=== PATIENT | female | born 1965 | race Caucasian/White ===

== ENCOUNTER 2017-03-05 14:07 | Emergency (ER) | payer OTHER ==
[~2017-03-05] VITALS: Ht 165.1 cm; Wt 97.1 kg
[~2017-03-05 14:07] MED LIST: LORA1TAB PO; NORCO PO
[2017-03-05] MEDS ORDERED: ALBUTEROL/IPRATROPIUM 2.5MG/0.5MG, 3 ML NPPB ONE (14:30)
[2017-03-05] MEDS ORDERED: ALBUTEROL/IPRATROPIUM 2.5MG/0.5MG, 3 ML ONE (14:56)
[2017-03-05] MEDS ORDERED: OMNIPAQUE 350 MG/ML, 75ML BOTTLE ONE (17:09)
[2017-03-05 18:15] VITALS: BP 123/103
== END 2017-03-05 18:16 | disposition home or self-care (01) ==
LOC: ED 18:00
DX: J20.8 Acute bronchitis due to other specified organisms (principal)
CPT/HCPCS: 71020; 71260; 93005; 94640; 99284; Q9967; J7620

== ENCOUNTER → 2017-05-07 | Outpatient (CLI) | payer OTHER | END | disposition home or self-care (01) | LOC: CFH 10:05 | PROVIDERS: ATTEND Nurse Practitioner Family | DX: Z12.31 Encounter for screening mammogram for malignant neoplasm of breast (principal) | CPT/HCPCS: G0202 ==

== ENCOUNTER 2017-12-09 10:58 | Emergency (ER) | payer OTHER ==
[~2017-12-09] VITALS: Ht 152.4 cm; Wt 94.0 kg
[2017-12-09 11:06] VITALS: BP 122/82
[2017-12-09] MEDS ORDERED: ALBUTEROL/IPRATROPIUM 2.5MG/0.5MG, 3 ML ONE (14:55)
[2017-12-09] MEDS ORDERED: SODIUM CHLORIDE 0.9% 1,000ML IVBOLUS ONE (15:00)
[2017-12-09] MEDS ORDERED: SODIUM CHLORIDE FLUSH 10ML SYR IVF ONE (15:00)
[2017-12-09] MEDS ORDERED: ALBUTEROL/IPRATROPIUM 2.5MG/0.5MG, 3 ML NPPB ONE (15:00)
[2017-12-09 15:34] LABS: ALANINE AMINOTRANSFERASE 35 U/L (12-78); ALBUMIN 4.1 g/dL (3.4-5.0); ANION GAP 7 mmol/L (5-15); CALCIUM 8.8 mg/dL (8.5-10.1); CHLORIDE 104 mmol/L (98-107); CREATININE 0.86 mg/dL (0.55-1.02)
[2017-12-09 15:36] LABS: ALKALINE PHOSPHATASE 67 U/L (45-117); BILIRUBIN,TOTAL 0.4 mg/dL (0.2-1.0)
[2017-12-09 15:44] LABS: RAPID INFLUENZA A Negative (Negative)
[2017-12-09 15:45] LABS: RAPID INFLUENZA B POSITIVE (Negative)
[2017-12-09] MEDS ORDERED: ACETAMINOPHEN 500 MG TABLET ONE (15:45)
[2017-12-09] MEDS ORDERED: ACETAMINOPHEN 500 MG TABLET PO ONE (16:00)
[2017-12-09 16:34] LABS: BASOPHILS # (AUTO) 0.01 x10^3/uL (0-0.1); BASOPHILS % (AUTO) 0 % (0-1); EOSINOPHILS % (AUTO) 0 % (1-7); LYMPHOCYTES # (AUTO) 1.04 x10^3/uL (1-3.4); LYMPHOCYTES % (AUTO) 20 % (22-44); MD NO; MEAN CORPUSCULAR HEMOGLOBIN 29.9 pg (27.0-34.8); MEAN CORPUSCULAR HGB CONC 33.8 g/dL (32.4-35.8); MEAN CORPUSCULAR VOLUME 88.6 fL (80-100); MEAN PLATELET VOLUME 9.5 fL (7.4-10.4); MONOCYTES # (AUTO) 0.55 x10^3/uL (0.2-0.8); MONOCYTES % (AUTO) 11 % (2-9); NEUTROPHILS # (AUTO) 3.61 x10^3/uL (1.8-6.8); NEUTROPHILS % (AUTO) 69 % (42-75); PLATELET COUNT 199 x10^3/uL (130-400); RED BLOOD COUNT 5.33 x10^6/uL (3.82-5.3); RED CELL DISTRIBUTION WIDTH 13.7 % (9.6-15.2)
== END 2017-12-09 17:44 | disposition home or self-care (01) ==
LOC: ED 17:09
DX: J11.1 Influenza due to unidentified influenza virus with other respiratory manifestations (principal); J40 Bronchitis, not specified as acute or chronic; F17.200 Nicotine dependence, unspecified, uncomplicated
CPT/HCPCS: 36415; 71046; 80053; 83605; 85025; 87040; 87400; 93005; 94640; 96360; 99285; J7030; J7512; J7620

== ENCOUNTER 2017-12-11 08:34 | Inpatient (IN) | payer OTHER ==
[~2017-12-11] VITALS: Ht 165.1 cm; Wt 96.0 kg
[2017-12-11] MEDS ORDERED: ONDANSETRON 2MG/ML, 2ML IVPush ONE (09:30)
[2017-12-11] MEDS ORDERED: SODIUM CHLORIDE 0.9% 1,000ML IVBOLUS ONE (09:30)
[2017-12-11] MEDS ORDERED: MORPHINE SULFATE 4 MG/ML, 1ML IVPush PRN (09:30)
[2017-12-11] MEDS ORDERED: VANCOMYCIN PER PHARMACY MC ONE (09:30)
[2017-12-11] MEDS ORDERED: CEFTRIAXONE PMX 1GM/50ML 50 ML IVPB ONE (09:30)
[2017-12-11] MEDS ORDERED: SODIUM CHLORIDE FLUSH 10ML SYR IVF ONE (09:30)
[2017-12-11] MEDS ORDERED: MORPHINE SULFATE 4 MG/ML, 1ML ONE (09:39)
[2017-12-11] MEDS ORDERED: ONDANSETRON 2MG/ML, 2ML ONE (09:39)
[2017-12-11] MEDS ORDERED: CEFTRIAXONE PMX 1GM/50ML 50 ML ONE (09:39)
[2017-12-11] MEDS ORDERED: PHARMACOKINETIC CONSULTATION MC ONE ×2 (10:00→13:30)
[2017-12-11 10:02] LABS: MD YES; MEAN CORPUSCULAR HEMOGLOBIN 30.1 pg (27.0-34.8); MEAN CORPUSCULAR VOLUME 88.7 fL (80-100); MEAN PLATELET VOLUME 9.3 fL (7.4-10.4); PLATELET COUNT 179 x10^3/uL (130-400); RED BLOOD COUNT 5.11 x10^6/uL (3.82-5.3); RED CELL DISTRIBUTION WIDTH 14.1 % (9.6-15.2)
[2017-12-11 10:04] LABS: ALANINE AMINOTRANSFERASE 46 U/L (12-78); ALBUMIN 3.7 g/dL (3.4-5.0); ANION GAP 5 mmol/L (5-15); CALCIUM 8.6 mg/dL (8.5-10.1); CHLORIDE 106 mmol/L (98-107); CREATININE 0.66 mg/dL (0.55-1.02)
[2017-12-11 10:06] LABS: ALKALINE PHOSPHATASE 59 U/L (45-117); BILIRUBIN,TOTAL 0.4 mg/dL (0.2-1.0); TOTAL PROTEIN 7.6 g/dL (6.4-8.2)
[2017-12-11] MEDS ORDERED: VANCOMYCIN 1,500 MG in SODIUM CHLORIDE 0.9% 250 ML IV ONE (10:30)
[2017-12-11] MEDS ORDERED: VANCOMYCIN 1,800 MG in SODIUM CHLORIDE 0.9% 250 ML IV ONE (10:30)
[2017-12-11 10:57] LABS: <PLATELET ESTIMATE> ADEQUATE; <PLT MORPHOLOGY> NORMAL PLT MORPH; <RBC MORPHOLOGY> NORMAL; BAND#(MANUAL) 0.38 x10^3/uL; BANDS%(MANUAL) 6 % (0-7); LYMPHS% (MANUAL) 14 % (22-44); SEG#(MANUAL) 5.12 x10^3/uL (1.8-6.8); SEGS% (MANUAL) 80 % (42-75)
[2017-12-11] MEDS ORDERED: VANCOMYCIN PER PHARMACY MC PRN (11:30)
[2017-12-11] MEDS ORDERED: ACETAMINOPHEN 325 MG TABLET PO PRN (11:30)
[2017-12-11] MEDS ORDERED: DOXYCYCLINE 100 MG in DEXTROSE 5% 250 ML IV SCH (11:30)
[2017-12-11] MEDS ORDERED: ALBUTEROL/IPRATROPIUM 2.5MG/0.5MG, 3 ML ONE (12:35)
[2017-12-11 12:57] VITALS: BP 113/74
[2017-12-11] MEDS ORDERED: AMOX1TAB12 PO (13:20)
[2017-12-11] MEDS ORDERED: PRED20TA PO (13:22)
[2017-12-11] MEDS ORDERED: PHARMACOKINETIC MONITORING MC PRN (13:30)
[2017-12-11] MEDS: OSELTAMIVIR 75 MG CAPSULE PO SCH ×2 (14:42→22:04)
[2017-12-11] MEDS: GUAIFENESIN ER 600 MG TABLET PO SCH ×2 (14:43→22:04)
[2017-12-11] MEDS: BENZONATATE 100 MG CAPSULE PO SCH ×3 (14:43→22:04)
[2017-12-11] MEDS: SODIUM CHLORIDE 0.9% 1,000 ML IV SCH (14:44)
[2017-12-11] MEDS: HEPARIN 5,000 UNITS/ML, 1ML SQ SCH ×2 (14:44→22:04)
[2017-12-11] MEDS: DOXYCYCLINE 100 MG in DEXTROSE 5% 250 ML IV SCH (14:50)
[2017-12-11] MEDS: NICOTINE 21 MG/24 HR PATCH.TD24 TD SCH (14:51)
[2017-12-11] MEDS: ALBUTEROL SULFATE 2.5 MG/3 ML NPPB SCH ×2 (15:00→18:57)
[2017-12-11 20:55] LABS: MICROSCOPIC NOT IND
[2017-12-11 20:58] LABS: CULTURE INDICATED? NO
[2017-12-11 22:00] VITALS: BP 109/75
[2017-12-11] MEDS: VANCOMYCIN 1,400 MG in SODIUM CHLORIDE 0.9% 250 ML IV SCH (22:53)
[2017-12-12] MEDS: SODIUM CHLORIDE 0.9% 1,000 ML IV SCH ×2 (00:45→14:50)
[2017-12-12] MEDS: DOXYCYCLINE 100 MG in DEXTROSE 5% 250 ML IV SCH ×2 (02:01→14:49)
[2017-12-12] MEDS: LORazepam 1MG TABLET PO PRN ×3 (03:19→22:53)
[2017-12-12 03:38] VITALS: BP 93/68
[2017-12-12 04:08] LABS: BASOPHILS # (AUTO) 0.01 x10^3/uL (0-0.1); BASOPHILS % (AUTO) 0 % (0-1); EOSINOPHILS % (AUTO) 0 % (1-7); LYMPHOCYTES # (AUTO) 1.28 x10^3/uL (1-3.4); LYMPHOCYTES % (AUTO) 30 % (22-44); MD NO; MEAN CORPUSCULAR HEMOGLOBIN 29.9 pg (27.0-34.8); MEAN CORPUSCULAR HGB CONC 33.5 g/dL (32.4-35.8); MEAN CORPUSCULAR VOLUME 89.4 fL (80-100); MEAN PLATELET VOLUME 9.2 fL (7.4-10.4); MONOCYTES # (AUTO) 0.43 x10^3/uL (0.2-0.8); MONOCYTES % (AUTO) 10 % (2-9); NEUTROPHILS # (AUTO) 2.61 x10^3/uL (1.8-6.8); NEUTROPHILS % (AUTO) 61 % (42-75); PLATELET COUNT 169 x10^3/uL (130-400); RED BLOOD COUNT 4.35 x10^6/uL (3.82-5.3); RED CELL DISTRIBUTION WIDTH 14.2 % (9.6-15.2)
[2017-12-12 04:22] LABS: CHLORIDE 107 mmol/L (98-107)
[2017-12-12 04:31] LABS: ALANINE AMINOTRANSFERASE 41 U/L (12-78); ALBUMIN 3.1 g/dL (3.4-5.0); ALKALINE PHOSPHATASE 51 U/L (45-117); ANION GAP 9 mmol/L (5-15); BILIRUBIN,TOTAL 0.3 mg/dL (0.2-1.0); CALCIUM 7.9 mg/dL (8.5-10.1); CREATININE 0.81 mg/dL (0.55-1.02); TOTAL PROTEIN 6.5 g/dL (6.4-8.2)
[2017-12-12] MEDS: ALBUTEROL SULFATE 2.5 MG/3 ML NPPB SCH ×4 (05:35→20:51)
[2017-12-12] MEDS: HEPARIN 5,000 UNITS/ML, 1ML SQ SCH ×3 (06:06→22:43)
[2017-12-12] MEDS: NICOTINE 21 MG/24 HR PATCH.TD24 TD SCH (08:16)
[2017-12-12] MEDS: GUAIFENESIN ER 600 MG TABLET PO SCH ×2 (08:16→20:31)
[2017-12-12] MEDS: OSELTAMIVIR 75 MG CAPSULE PO SCH ×2 (08:16→20:31)
[2017-12-12] MEDS: BENZONATATE 100 MG CAPSULE PO SCH ×3 (08:16→20:31)
[2017-12-12 08:19] VITALS: BP 124/79
[2017-12-12] MEDS ORDERED: POLYETHYLENE GLYCOL 17 GM PACKET PO PRN (08:30)
[2017-12-12] MEDS ORDERED: ONDANSETRON 4 MG TABLET PO PRN (08:30)
[2017-12-12] MEDS: DOCUSATE 100 MG CAPSULE PO SCH ×2 (09:00→20:31)
[2017-12-12] MEDS: CEFTRIAXONE PMX 1GM/50ML 50 ML IV SCH (10:35)
[2017-12-12] MEDS: VANCOMYCIN 1,400 MG in SODIUM CHLORIDE 0.9% 250 ML IV SCH ×2 (11:17→22:44)
[2017-12-12 15:17] VITALS: BP 131/84
[2017-12-12 19:17] VITALS: BP 121/84
[2017-12-13 00:16] VITALS: BP 116/73
[2017-12-13] MEDS: DOXYCYCLINE 100 MG in DEXTROSE 5% 250 ML IV SCH ×2 (02:13→15:06)
[2017-12-13] MEDS: SODIUM CHLORIDE 0.9% 1,000 ML IV SCH (05:34)
[2017-12-13] MEDS: HEPARIN 5,000 UNITS/ML, 1ML SQ SCH ×3 (06:27→21:05)
[2017-12-13] MEDS: ALBUTEROL SULFATE 2.5 MG/3 ML NPPB SCH ×4 (07:05→20:30)
[2017-12-13 07:24] VITALS: BP 114/82
[2017-12-13] MEDS: DOCUSATE 100 MG CAPSULE PO SCH ×2 (08:38→21:05)
[2017-12-13] MEDS: GUAIFENESIN ER 600 MG TABLET PO SCH ×2 (08:38→21:05)
[2017-12-13] MEDS: BENZONATATE 100 MG CAPSULE PO SCH ×3 (08:39→21:04)
[2017-12-13] MEDS: OSELTAMIVIR 75 MG CAPSULE PO SCH ×2 (08:39→21:04)
[2017-12-13 09:01] VITALS: BP 121/81
[2017-12-13] MEDS: CEFTRIAXONE PMX 1GM/50ML 50 ML IV SCH (10:11)
[2017-12-13 14:53] VITALS: BP 118/76
[2017-12-13] MEDS: NICOTINE 21 MG/24 HR PATCH.TD24 TD SCH (15:06)
[2017-12-13 19:01] VITALS: BP 105/63
[2017-12-13] MEDS: LORazepam 1MG TABLET PO PRN (21:05)
[2017-12-14 00:58] VITALS: BP 125/82
[2017-12-14] MEDS: DOXYCYCLINE 100 MG in DEXTROSE 5% 250 ML IV SCH ×2 (02:44→14:30)
[2017-12-14] MEDS: HEPARIN 5,000 UNITS/ML, 1ML SQ SCH ×2 (03:09→16:45)
[2017-12-14 06:59] VITALS: BP 122/80
[2017-12-14] MEDS: ALBUTEROL SULFATE 2.5 MG/3 ML NPPB SCH ×3 (07:24→15:45)
[2017-12-14] MEDS: CEFTRIAXONE PMX 1GM/50ML 50 ML IV SCH (09:42)
[2017-12-14] MEDS: GUAIFENESIN ER 600 MG TABLET PO SCH (09:43)
[2017-12-14] MEDS: BENZONATATE 100 MG CAPSULE PO SCH ×2 (09:44→16:53)
[2017-12-14] MEDS: DOCUSATE 100 MG CAPSULE PO SCH (09:44)
[2017-12-14] MEDS: OSELTAMIVIR 75 MG CAPSULE PO SCH (09:44)
[2017-12-14] MEDS: LORazepam 1MG TABLET PO PRN (09:45)
[2017-12-14] MEDS ORDERED: OSEL75CA PO (11:41)
[2017-12-14] MEDS ORDERED: GUAI600T31 PO (11:41)
[2017-12-14] MEDS ORDERED: CEFD300C37 PO (11:41)
[2017-12-14] MEDS ORDERED: DOXY100T PO (11:41)
[2017-12-14] MEDS ORDERED: PRED20TA PO (11:41)
[2017-12-14] MEDS ORDERED: CEFDINIR 300 MG CAPSULE PO SCH (12:00)
[2017-12-14] MEDS ORDERED: DOXYCYCLINE 100MG TABLET PO SCH (12:00)
[2017-12-14] MEDS ORDERED: ALBU2.5V NPPB (12:02)
[2017-12-14 13:07] VITALS: BP 108/71
[2017-12-14 16:36] VITALS: BP 112/75
[2017-12-14] MEDS: NICOTINE 21 MG/24 HR PATCH.TD24 TD SCH (16:54)
== END 2017-12-14 17:40 | disposition home or self-care (01) | DRG 193 ==
LOC: ED 09:13 → EDIP 10:08 → 4NOR 12:27
PROVIDERS: ADMIT Hospitalist; ATTEND Hospitalist
DX: J10.08 Influenza due to other identified influenza virus with other specified pneumonia (principal); J96.01 Acute respiratory failure with hypoxia; R78.81 Bacteremia; J15.9 Unspecified bacterial pneumonia; B96.89 Other specified bacterial agents as the cause of diseases classified elsewhere; F41.9 Anxiety disorder, unspecified; H66.90 Otitis media, unspecified, unspecified ear; T38.0X5A Adverse effect of glucocorticoids and synthetic analogues, initial encounter; M54.12 Radiculopathy, cervical region; Z71.6 Tobacco abuse counseling; Z79.899 Other long term (current) drug therapy; F17.210 Nicotine dependence, cigarettes, uncomplicated
CPT/HCPCS: 36415; 71045; 80053; 80202; 81003; 82962; 83605; 85025; 87040; 93005; 93306; 94640; 96365; 96375; J0696; J1644; J2405; J3370; J7060; J7613; J7030; J7050; J7512

== ENCOUNTER 2018-01-14 18:20 | Emergency (ER) | payer OTHER ==
[~2018-01-14] VITALS: Ht 165.1 cm; Wt 91.0 kg
[~2018-01-14 18:20] MED LIST changes: +ALBU2.5V NPPB; +AMOX1TAB12 PO; +CEFD300C37 PO; +DOXY100T PO; +GUAI600T31 PO; +OSEL75CA PO; +PRED20TA PO
[2018-01-14] MEDS ORDERED: AMOX-291 PO (18:49)
[2018-01-14 19:19] LABS: BASOPHILS # (AUTO) 0.04 x10^3/uL (0-0.1); BASOPHILS % (AUTO) 0 % (0-1); EOSINOPHILS # (AUTO) 0.15 x10^3/uL (0-0.4); EOSINOPHILS % (AUTO) 2 % (1-7); LYMPHOCYTES # (AUTO) 2.68 x10^3/uL (1-3.4); LYMPHOCYTES % (AUTO) 27 % (22-44); MD NO; MEAN CORPUSCULAR HEMOGLOBIN 30.4 pg (27.0-34.8); MEAN CORPUSCULAR HGB CONC 34.6 g/dL (32.4-35.8); MEAN CORPUSCULAR VOLUME 88.1 fL (80-100); MEAN PLATELET VOLUME 8.9 fL (7.4-10.4); MONOCYTES # (AUTO) 0.72 x10^3/uL (0.2-0.8); MONOCYTES % (AUTO) 7 % (2-9); NEUTROPHILS # (AUTO) 6.24 x10^3/uL (1.8-6.8); NEUTROPHILS % (AUTO) 64 % (42-75); PLATELET COUNT 320 x10^3/uL (130-400); RED BLOOD COUNT 4.52 x10^6/uL (3.82-5.3); RED CELL DISTRIBUTION WIDTH 12.9 % (9.6-15.2)
[2018-01-14 19:25] LABS: ALANINE AMINOTRANSFERASE 41 U/L (12-78); ALBUMIN 3.5 g/dL (3.4-5.0); ANION GAP 7 mmol/L (5-15); CALCIUM 8.7 mg/dL (8.5-10.1); CHLORIDE 105 mmol/L (98-107); CREATININE 0.79 mg/dL (0.55-1.02)
[2018-01-14 19:29] LABS: ALKALINE PHOSPHATASE 66 U/L (45-117); BILIRUBIN,TOTAL 0.2 mg/dL (0.2-1.0); TROPONIN I < 0.015 ng/mL (0.000-0.045)
[2018-01-14 21:05] VITALS: BP 145/92
== END 2018-01-14 21:06 | disposition home or self-care (01) ==
LOC: ED 20:40
DX: R07.89 Other chest pain (principal); J01.00 Acute maxillary sinusitis, unspecified
CPT/HCPCS: 36415; 71045; 80053; 84484; 85025; 93005; 99285

== ENCOUNTER → 2018-02-10 | Outpatient (CLI) | payer OTHER ==
[~2018-02-10] MED LIST changes: +AMOX-291 PO
== END | disposition home or self-care (01) ==
LOC: CFH 14:46
PROVIDERS: ATTEND Nurse Practitioner Family
DX: E04.1 Nontoxic single thyroid nodule (principal); R59.9 Enlarged lymph nodes, unspecified
CPT/HCPCS: 76536

== ENCOUNTER → 2018-03-20 | Outpatient (CLI) | payer OTHER ==
[~2018-03-20] MED LIST changes: +OMNIPAQUE 350 MG/ML, 75ML BOTTLE ONE
== END | disposition home or self-care (01) ==
LOC: CFH 10:30
PROVIDERS: ATTEND Nurse Practitioner Family
DX: R06.02 Shortness of breath (principal)
CPT/HCPCS: 71260; Q9967

== ENCOUNTER → 2019-03-30 | Outpatient (CLI) | payer OTHER ==
[~2019-03-30] MED LIST changes: -OMNIPAQUE 350 MG/ML, 75ML BOTTLE ONE; -OSEL75CA PO; +OSEL75CA26 PO
== END | disposition home or self-care (01) ==
LOC: CFH 07:25
PROVIDERS: ATTEND Otolaryngology
DX: K76.0 Fatty (change of) liver, not elsewhere classified (principal); E04.1 Nontoxic single thyroid nodule
CPT/HCPCS: 76536; 76700

== ENCOUNTER → 2019-12-15 | Outpatient (CLI) | payer OTHER | END | disposition home or self-care (01) | LOC: CFH 16:06 | PROVIDERS: ATTEND Nurse Practitioner Family | DX: R06.02 Shortness of breath (principal) | CPT/HCPCS: 71046 ==

== ENCOUNTER 2020-04-01 12:35 | Emergency (ER) | payer OTHER ==
[~2020-04-01] VITALS: Ht 165.1 cm; Wt 104.1 kg
--- NOTE | 2020-04-01 12:48 | NUR ---
PT AMBULATED TO RESTROOM WITH STEADY GAIT TO PROVIDE URINE SAMPLE. UA ORDERED PER PROTOCOL AND SENT TO LAB.
--- NOTE | 2020-04-01 13:24 | NUR ---
PIV PLACED, LABS DRAWN AND COLLECTED BY CREEL SELECTOR. PT CONNECTED TO MONITORING. PT ON BASELINE 3L OXYGEN. MARTHA.
[2020-04-01] MEDS ORDERED: SODIUM CHLORIDE FLUSH 10ML SYR IVF ONE (13:30)
[2020-04-01 13:36] LABS: BASOPHILS # (AUTO) 0.03 x10^3/uL (0-0.1); BASOPHILS % (AUTO) 0 % (0-1); EOSINOPHILS # (AUTO) 0.21 x10^3/uL (0-0.4); EOSINOPHILS % (AUTO) 2 % (1-7); LYMPHOCYTES % (AUTO) 24 % (22-44); MD NO; MEAN CORPUSCULAR HEMOGLOBIN 30.2 pg (27.0-34.8); MEAN CORPUSCULAR VOLUME 91.4 fL (80-100); MEAN PLATELET VOLUME 9.1 fL (7.4-10.4); MONOCYTES # (AUTO) 0.58 x10^3/uL (0.2-0.8); MONOCYTES % (AUTO) 6 % (2-9); NEUTROPHILS # (AUTO) 6.37 x10^3/uL (1.8-6.8); NEUTROPHILS % (AUTO) 67 % (42-75); PLATELET COUNT 284 x10^3/uL (130-400); RED BLOOD COUNT 5.07 x10^6/uL (3.82-5.3); RED CELL DISTRIBUTION WIDTH 13.5 % (9.6-15.2)
[2020-04-01 13:37] LABS: MICROSCOPIC NOT IND
[2020-04-01 13:46] LABS: ALANINE AMINOTRANSFERASE 35 U/L (12-78); ALBUMIN 3.6 g/dL (3.4-5.0); ANION GAP 8 mmol/L (5-15); CALCIUM 8.5 mg/dL (8.5-10.1); CHLORIDE 108 mmol/L (98-107); CREATININE 0.85 mg/dL (0.55-1.02)
[2020-04-01 13:50] LABS: ALKALINE PHOSPHATASE 64 U/L (45-117); BILIRUBIN,TOTAL 0.3 mg/dL (0.2-1.0); TOTAL PROTEIN 7.4 g/dL (6.4-8.2); TROPONIN I < 0.015 ng/mL (0.000-0.045)
--- NOTE | 2020-04-01 14:01 | NUR ---
ALL RESULTS ARE BACK AT THIS TIME. CHART UP FOR RECHECK.
[2020-04-01 14:06] VITALS: BP 120/71
--- NOTE | 2020-04-01 14:09 | NUR ---
MD AT BEDSIDE TO UPDATE PT ON POC.
--- NOTE | 2020-04-01 14:14 | NUR ---
NEW ORDER FOR CT OF ABD, AT THIS TIME.
--- NOTE | 2020-04-01 14:25 | NUR ---
PT GOING TO CT.
--- NOTE | 2020-04-01 14:43 | NUR ---
ALL RESULTS ARE BACK AT THIS TIME. CHART UP FOR RECHECK.
--- NOTE | 2020-04-01 14:59 | NUR ---
Rudy khan in [facility] - 04/01/20 at 1514 by USSELLCourtney PT GIVEN TAXI VOUCHER FOR [employer] [facility]. PT REFUSED VITALS.
== END 2020-04-01 15:00 | disposition home or self-care (01) ==
LOC: ED 13:29
DX: R06.00 Dyspnea, unspecified (principal); R42 Dizziness and giddiness; R53.83 Other fatigue; J45.909 Unspecified asthma, uncomplicated; R94.31 Abnormal electrocardiogram [ECG] [EKG]
CPT/HCPCS: 36415; 71045; 74176; 80053; 81003; 84484; 85025; 93005; 99285

== ENCOUNTER 2020-06-07 15:28 | Emergency (ER) | payer OTHER ==
[~2020-06-07] VITALS: Ht 165.1 cm; Wt 104.7 kg
[2020-06-07] MEDS ORDERED: SODIUM CHLORIDE FLUSH 10ML SYR IVF ONE (16:00)
[2020-06-07 16:45] LABS: BASOPHILS # (AUTO) 0.06 x10^3/uL (0-0.1); BASOPHILS % (AUTO) 1 % (0-1); EOSINOPHILS # (AUTO) 0.25 x10^3/uL (0-0.4); EOSINOPHILS % (AUTO) 3 % (1-7); LYMPHOCYTES # (AUTO) 2.64 x10^3/uL (1-3.4); LYMPHOCYTES % (AUTO) 26 % (22-44); MD NO; MEAN CORPUSCULAR HEMOGLOBIN 30.1 pg (27.0-34.8); MEAN CORPUSCULAR HGB CONC 33.5 g/dL (32.4-35.8); MEAN CORPUSCULAR VOLUME 89.8 fL (80-100); MEAN PLATELET VOLUME 8.7 fL (7.4-10.4); MONOCYTES % (AUTO) 6 % (2-9); NEUTROPHILS # (AUTO) 6.51 x10^3/uL (1.8-6.8); NEUTROPHILS % (AUTO) 65 % (42-75); PLATELET COUNT 258 x10^3/uL (130-400); RED BLOOD COUNT 5.12 x10^6/uL (3.82-5.3); RED CELL DISTRIBUTION WIDTH 13.9 % (9.6-15.2)
--- NOTE | 2020-06-07 16:46 | NUR ---
HAT CONDITIONER: PT TO ROOM FROM LOBBY
[2020-06-07 16:56] LABS: ALBUMIN 3.8 g/dL (3.4-5.0); ANION GAP 6 mmol/L (5-15); CALCIUM 8.6 mg/dL (8.5-10.1); CHLORIDE 110 mmol/L (98-107)
[2020-06-07 17:01] LABS: ALANINE AMINOTRANSFERASE 35 U/L (12-78); ALKALINE PHOSPHATASE 73 U/L (45-117); BILIRUBIN,TOTAL 0.4 mg/dL (0.2-1.0); CREATININE 0.83 mg/dL (0.55-1.02); TOTAL PROTEIN 7.6 g/dL (6.4-8.2)
--- NOTE | 2020-06-07 17:20 | NUR ---
UA SENT VSS ON NIBP/POX PROVIDER TO BEDSIDE FOR RE-EVAL (ORIGINAL ORDERS PLACED BY PIT PROVIDER)
[2020-06-07] MEDS ORDERED: MORPHINE SULFATE 4 MG/ML, 1ML IVPush PRN (17:30)
[2020-06-07] MEDS ORDERED: ONDANSETRON 2MG/ML, 2ML IVPush ONE (17:30)
[2020-06-07 17:50] LABS: HCG UR SG 1.022 (1.003-1.030)
[2020-06-07] MEDS ORDERED: ONDANSETRON 2MG/ML, 2ML ONE (18:15)
[2020-06-07] MEDS ORDERED: MORPHINE SULFATE 4 MG/ML, 1ML ONE (18:16)
--- NOTE | 2020-06-07 19:06 | NUR ---
report to josué mercedes
[2020-06-07 19:21] VITALS: BP 151/89
[2020-06-07 19:23] LABS: MICROSCOPIC NOT IND
== END 2020-06-07 19:23 | disposition home or self-care (01) ==
LOC: ED 19:18
DX: R10.11 Right upper quadrant pain (principal); R10.13 Epigastric pain; R11.2 Nausea with vomiting, unspecified; R19.7 Diarrhea, unspecified; J44.9 Chronic obstructive pulmonary disease, unspecified
CPT/HCPCS: 36415; 76700; 80053; 81003; 81025; 83690; 85025; 96374; 96375; 99284; J2270; J2405

== ENCOUNTER → 2020-06-27 | Outpatient (CLI) | payer OTHER ==
[~2020-06-27] MED LIST changes: +SINCALIDE (KINEVAC) 5 MCG ONE
== END | disposition home or self-care (01) ==
LOC: RAD 11:08
PROVIDERS: ATTEND Nurse Practitioner Family
DX: R10.9 Unspecified abdominal pain (principal)
CPT/HCPCS: 78227; A9537; J2805

== ENCOUNTER 2020-07-03 06:51 | Observation (INO) | payer OTHER ==
[~2020-07-03] VITALS: Ht 165.1 cm; Wt 108.2 kg
[~2020-07-03 06:51] MED LIST changes: -SINCALIDE (KINEVAC) 5 MCG ONE
--- NOTE | 2020-07-03 07:04 | NUR ---
PT AMBULATED W/ A STEADY GAIT TO THE ROOM AT THIS TIME.
--- NOTE | 2020-07-03 07:15 | NUR ---
first contact with pt. ptc/o all quadrants abd pain/mid back and neck pain/swelling arms and legs with tinglingfeeling. pt stated "my gallbladder is not working". pt denies n/v/d. pt's aox4. resps even and unlabored. bp/spo2 monitors in place. call light within reach.
[2020-07-03] MEDS ORDERED: ONDANSETRON 2MG/ML, 2ML IVPush ONE (07:30)
[2020-07-03] MEDS ORDERED: SODIUM CHLORIDE FLUSH 10ML SYR IVF ONE (07:30)
[2020-07-03] MEDS ORDERED: MORPHINE SULFATE 4 MG/ML, 1ML IVPush PRN ×2 (07:30→10:30)
[2020-07-03 07:38] LABS: BASOPHILS # (AUTO) 0.03 x10^3/uL (0-0.1); BASOPHILS % (AUTO) 0 % (0-1); EOSINOPHILS # (AUTO) 0.26 x10^3/uL (0-0.4); EOSINOPHILS % (AUTO) 4 % (1-7); LYMPHOCYTES # (AUTO) 2.11 x10^3/uL (1-3.4); LYMPHOCYTES % (AUTO) 30 % (22-44); MD NO; MEAN CORPUSCULAR HEMOGLOBIN 29.9 pg (27.0-34.8); MEAN CORPUSCULAR HGB CONC 33.2 g/dL (32.4-35.8); MEAN PLATELET VOLUME 8.6 fL (7.4-10.4); MONOCYTES # (AUTO) 0.53 x10^3/uL (0.2-0.8); MONOCYTES % (AUTO) 8 % (2-9); NEUTROPHILS # (AUTO) 4.07 x10^3/uL (1.8-6.8); NEUTROPHILS % (AUTO) 58 % (42-75); PLATELET COUNT 243 x10^3/uL (130-400); RED BLOOD COUNT 4.94 x10^6/uL (3.82-5.3); RED CELL DISTRIBUTION WIDTH 13.4 % (9.6-15.2)
[2020-07-03] MEDS ORDERED: ONDANSETRON 2MG/ML, 2ML ONE ×3 (07:40→19:43)
[2020-07-03] MEDS ORDERED: MORPHINE SULFATE 4 MG/ML, 1ML ONE ×2 (07:40→10:08)
--- NOTE | 2020-07-03 07:45 | NUR ---
pt amb to br and back to room with steady gait. pt provided urine sample and ua sent.
[2020-07-03 07:48] LABS: ALANINE AMINOTRANSFERASE 24 U/L (12-78); ALBUMIN 3.4 g/dL (3.4-5.0); ANION GAP 7 mmol/L (5-15); CALCIUM 9.2 mg/dL (8.5-10.1); CHLORIDE 113 mmol/L (98-107); CREATININE 0.69 mg/dL (0.55-1.02)
[2020-07-03 07:50] LABS: ALKALINE PHOSPHATASE 62 U/L (45-117); BILIRUBIN,TOTAL 0.5 mg/dL (0.2-1.0); TOTAL PROTEIN 6.9 g/dL (6.4-8.2)
--- NOTE | 2020-07-03 07:59 | NUR ---
piv est on r ac with no complications. pt medicated per emar. pt tolerated well.
[2020-07-03 08:02] LABS: MICROSCOPIC NOT IND
[2020-07-03] MEDS ORDERED: [UNRECOGNIZED DRUG - REMARK] (08:57)
--- NOTE | 2020-07-03 09:07 | NUR ---
pt resting in [facility]. pt's aox4. resps even and unlabored. pt stated"i got some new perscription meds but i don't remember the name of medications."
--- NOTE | 2020-07-03 09:53 | NUR ---
this rn talked to rn at or. pt is suppose to go to or at 3pm today. pt updated.
--- NOTE | 2020-07-03 10:26 | NUR ---
pt medicated per emar. pt tolerated well.
[2020-07-03] MEDS ORDERED: ALBUTEROL SULFATE 2.5 MG/3 ML NPPB PRN ×2 (10:30→19:00)
[2020-07-03] MEDS ORDERED: METOCLOPRAMIDE 5 MG/ML, 2ML IVPush PRN (10:30)
[2020-07-03] MEDS ORDERED: ONDANSETRON ODT 4 MG PO PRN (10:30)
[2020-07-03] MEDS ORDERED: ACETAMINOPHEN 325 MG TABLET PO PRN (10:30)
[2020-07-03] MEDS ORDERED: POLYETHYLENE GLYCOL 17 GM PACKET PO PRN (10:30)
--- NOTE | 2020-07-03 10:58 | NUR ---
report given to jean-pierre mercedes. all questions answered.
[2020-07-03 11:35] VITALS: BP 118/75
[2020-07-03] MEDS: LORazepam 1MG TABLET PO SCH ×3 (11:44→20:51)
[2020-07-03] MEDS: LACTATED RINGERS 1,000 ML IV SCH ×2 (11:54→20:51)
[2020-07-03] MEDS: KETOROLAC 30 MG/1 ML IV PRN ×2 (11:54→20:51)
[2020-07-03 12:26] LABS: HCG UR SG 1.023 (1.003-1.030)
[2020-07-03 13:08] VITALS: BP 101/68
[2020-07-03] MEDS ORDERED: BUPIVACAINE/PF 0.5% ONE (16:56)
[2020-07-03] MEDS ORDERED: MIDAZOLAM 1 MG/ML, 2ML ONE (17:59)
[2020-07-03] MEDS ORDERED: FENTANYL PF 250 MCG/5ML ONE (17:59)
[2020-07-03] MEDS ORDERED: CEFAZOLIN 1,000 MG ONE (18:25)
[2020-07-03] MEDS ORDERED: SUCCINYLCHOLINE 20 MG/ML, 10ML ONE (18:25)
[2020-07-03] MEDS ORDERED: SUGAMMADEX 200 MG/2 ML IVPush ONE (18:25)
[2020-07-03] MEDS ORDERED: ROCURONIUM 10 MG/ML,10ML ONE (18:25)
[2020-07-03] MEDS ORDERED: PROPOFOL 10 MG/ML, 20ML ONE (18:25)
[2020-07-03] MEDS ORDERED: DEXAMETHASONE 4 MG/ML, 1ML ONE (18:25)
[2020-07-03] MEDS ORDERED: BUPIVACAINE/PF 0.5% INFIL ONE (18:58)
[2020-07-03] MEDS ORDERED: EPINEPHRINE 1 MG/ML, 1ML INFIL ONE (18:59)
[2020-07-03] MEDS ORDERED: OXYcodone 5 MG/5 ML ORAL.SOL UDC PO PRN (19:00)
[2020-07-03] MEDS ORDERED: KETOROLAC 30 MG/1 ML IV PRN (19:00)
[2020-07-03] MEDS ORDERED: METOCLOPRAMIDE 5 MG/ML, 2ML IV PRN (19:00)
[2020-07-03] MEDS ORDERED: hydrALAzine 20 MG/ML, 1ML IV PRN (19:00)
[2020-07-03] MEDS ORDERED: LABETALOL 5MG/ML, 20ML IV PRN (19:00)
[2020-07-03] MEDS ORDERED: ONDANSETRON 2MG/ML, 2ML IVPush PRN (19:00)
[2020-07-03] MEDS ORDERED: DIAZEPAM 5 MG/ML, 2ML IV PRN ×2 (19:00)
[2020-07-03] MEDS ORDERED: PROMETHAZINE 25 MG/ML, 1ML IV PRN (19:00)
[2020-07-03] MEDS ORDERED: MEPERIDINE/PF 25MG/0.5ML IVPush PRN (19:00)
[2020-07-03] MEDS ORDERED: FENTANYL PF 100 MCG/2ML ONE (19:33)
[2020-07-03] MEDS ORDERED: OXYcodone 5 MG/5 ML ORAL.SOL UDC ONE (19:33)
[2020-07-03] MEDS: FENTANYL PF 100 MCG/2ML IV PRN ×2 (19:34→19:39)
[2020-07-03] MEDS ORDERED: HYDROmorphone 1 MG/ML, 1ML INJ ONE (19:43)
[2020-07-03] MEDS: HYDROmorphone 1 MG/ML, 1ML INJ IV PRN ×2 (19:46→19:53)
[2020-07-03] MEDS ORDERED: PROMETHAZINE 25 MG/ML, 1ML ONE (19:57)
[2020-07-03 20:33] VITALS: BP 135/82
[2020-07-03] MEDS ORDERED: TEMAZEPAM 15 MG CAPSULE PO PRN (21:00)
[2020-07-03 23:44] VITALS: BP 96/59
[2020-07-04] MEDS: LACTATED RINGERS 1,000 ML IV SCH ×2 (02:31→11:05)
[2020-07-04 03:32] VITALS: BP 113/66
[2020-07-04 05:32] LABS: BASOPHILS # (AUTO) 0.03 x10^3/uL (0-0.1); BASOPHILS % (AUTO) 0 % (0-1); EOSINOPHILS # (AUTO) 0.23 x10^3/uL (0-0.4); EOSINOPHILS % (AUTO) 3 % (1-7); LYMPHOCYTES # (AUTO) 2.48 x10^3/uL (1-3.4); LYMPHOCYTES % (AUTO) 27 % (22-44); MD NO; MEAN CORPUSCULAR HEMOGLOBIN 30.6 pg (27.0-34.8); MEAN PLATELET VOLUME 8.6 fL (7.4-10.4); MONOCYTES # (AUTO) 0.54 x10^3/uL (0.2-0.8); MONOCYTES % (AUTO) 6 % (2-9); NEUTROPHILS # (AUTO) 5.94 x10^3/uL (1.8-6.8); NEUTROPHILS % (AUTO) 65 % (42-75); PLATELET COUNT 223 x10^3/uL (130-400); RED BLOOD COUNT 4.25 x10^6/uL (3.82-5.3); RED CELL DISTRIBUTION WIDTH 13.6 % (9.6-15.2)
[2020-07-04 05:44] LABS: ALBUMIN 3.1 g/dL (3.4-5.0); ANION GAP 4 mmol/L (5-15); CALCIUM 8.5 mg/dL (8.5-10.1); CHLORIDE 111 mmol/L (98-107)
[2020-07-04 05:48] LABS: ALANINE AMINOTRANSFERASE 51 U/L (12-78); ALKALINE PHOSPHATASE 54 U/L (45-117); BILIRUBIN,TOTAL 0.6 mg/dL (0.2-1.0); CREATININE 0.71 mg/dL (0.55-1.02); TOTAL PROTEIN 6.1 g/dL (6.4-8.2)
[2020-07-04 07:10] VITALS: BP 110/62
[2020-07-04] MEDS: LORazepam 1MG TABLET PO SCH (08:55)
[2020-07-04] MEDS ORDERED: NICOTINE 14MG/24 HR PATCH.TD24 TD SCH (09:00)
[2020-07-04] MEDS ORDERED: SENNA/DOCUSATE TABLET PO SCH (09:00)
[2020-07-04] MEDS ORDERED: HYDR-3241 PO (12:42)
[2020-07-04] MEDS ORDERED: ONDA4TAB13 PO (12:42)
[2020-07-04] MEDS ORDERED: Senna/Docusate PO (12:42)
[2020-07-04] MEDS ORDERED: IBUP-1221 PO (12:42)
[2020-07-04 13:20] VITALS: BP 124/82
== END 2020-07-04 13:55 | disposition home or self-care (01) ==
LOC: ED 07:39 → INTOOBSV 10:15 → EDIP 10:15 → SUATTDRO 10:29 → 4NE 11:34
PROVIDERS: ADMIT Family Medicine; ATTEND Hospitalist
DX: K80.50 Calculus of bile duct without cholangitis or cholecystitis without obstruction (principal); Z20.828 Contact with and (suspected) exposure to other viral communicable diseases; K82.8 Other specified diseases of gallbladder; R73.9 Hyperglycemia, unspecified; E66.9 Obesity, unspecified; M54.12 Radiculopathy, cervical region; J44.9 Chronic obstructive pulmonary disease, unspecified; F17.210 Nicotine dependence, cigarettes, uncomplicated; Z90.49 Acquired absence of other specified parts of digestive tract; Z79.899 Other long term (current) drug therapy
CPT/HCPCS: 36415; 47562; 71045; 80053; 81003; 81025; 83690; 85025; 87635; 88304; 93005; 96361; 96374; 96375; 96376; 99285; G0378; J0171; J0330; J0690; J1100; J1170; J1885; J2250; J2270; J2405; J2550; J2704; J3010; J7120; S0020

== ENCOUNTER 2021-05-09 19:40 | Emergency (ER) | payer OTHER ==
[~2021-05-09] VITALS: Ht 165.1 cm; Wt 107.4 kg
[~2021-05-09 19:40] MED LIST changes: +HYDR-3241 PO; +IBUP-1221 PO; +ONDA4TAB13 PO; +Senna/Docusate PO; +[UNRECOGNIZED DRUG - REMARK]
--- NOTE | 2021-05-09 20:52 | NUR ---
cargo broker note: Pt to room from lobby.
--- NOTE | 2021-05-09 20:56 | NUR ---
PT BIB SELF VIA POV. PER PT SHE HAS HAD ABD PAIN [id number] AND HAS HAD YELLOW STOOLS. PT STATES SHE WAS SEEN BY HER PCP FOR THIS AND WAS TOLD IT MAY BE STOMACH ULCERS. PT HAD GALLBLADDER REMOVED PREVIOUSLY. PT STATES "I JUST WANT TO FIGURE OUT WHAT IT REALLY IS". PT RESTING IN [facility], MONITORING IN PLACE, MARTHA AT THIS TIME, WCTM.
--- NOTE | 2021-05-09 21:00 | NUR ---
Report from SHELLEY Kern. This RN to assume care.
--- NOTE | 2021-05-09 21:04 | NUR ---
REPORT TO SHELLEY HICKEY.
[2021-05-09] MEDS ORDERED: ONDANSETRON 2MG/ML, 2ML ONE (21:16)
[2021-05-09] MEDS ORDERED: MORPHINE SULFATE 4 MG/ML, 1ML ONE (21:16)
[2021-05-09] MEDS ORDERED: ONDANSETRON 2MG/ML, 2ML IVPush ONE (21:30)
[2021-05-09] MEDS ORDERED: MORPHINE SULFATE 4 MG/ML, 1ML IVPush PRN (21:30)
[2021-05-09] MEDS ORDERED: SODIUM CHLORIDE FLUSH 10ML SYR IVF ONE (21:30)
[2021-05-09 21:31] VITALS: BP 133/80
[2021-05-09 21:51] LABS: BASOPHILS % (AUTO) 1 % (0-1); EOSINOPHILS % (AUTO) 1 % (1-7); LYMPHOCYTES % (AUTO) 31 % (22-44); MEAN CORPUSCULAR HGB CONC 33.8 g/dL (32.4-35.8); MEAN PLATELET VOLUME 9.3 fL (7.4-10.4); MONOCYTES % (AUTO) 6 % (2-9); NEUTROPHILS % (AUTO) 61 % (42-75); PLATELET COUNT 259 x10^3/uL (130-400); RED BLOOD COUNT 5.04 x10^6/uL (3.82-5.3); RED CELL DISTRIBUTION WIDTH 13.7 % (9.6-15.2)
[2021-05-09 21:54] LABS: ALBUMIN 3.6 g/dL (3.4-5.0); ANION GAP 6 mmol/L (5-15); CALCIUM 8.9 mg/dL (8.5-10.1); CHLORIDE 111 mmol/L (98-107)
[2021-05-09 21:57] LABS: ALANINE AMINOTRANSFERASE 31 U/L (12-78); ALKALINE PHOSPHATASE 67 U/L (45-117); BILIRUBIN,TOTAL 0.3 mg/dL (0.2-1.0); CREATININE 0.62 mg/dL (0.55-1.02); TOTAL PROTEIN 6.8 g/dL (6.4-8.2)
[2021-05-09 22:14] LABS: MICROSCOPIC NOT IND
--- NOTE | 2021-05-09 23:15 | NUR ---
CARE ASSUMED FOR DC. PT DC'D HOME WITH RX X 3 AND UNDERSTANDING OF INSTRUCTIONS. PT ESCORTED TO DC DESK, GAIT STEADY.
== END 2021-05-09 23:18 | disposition home or self-care (01) ==
LOC: ED 22:35
DX: K29.70 Gastritis, unspecified, without bleeding (principal); R30.0 Dysuria; F17.210 Nicotine dependence, cigarettes, uncomplicated; J44.9 Chronic obstructive pulmonary disease, unspecified
CPT/HCPCS: 36415; 76700; 80053; 81003; 83690; 85025; 96374; 96375; 99284; 99406; J2270; J2405